=== PATIENT | male | born 1950 | race Hispanic/Latino ===

== ENCOUNTER 2017-07-02 10:07 | Observation (INO) | payer OTHER, MEDICARE ==
[2017-07-02] VITALS (9 sets, daily range): BP systolic 117–173; BP diastolic 70–116
[~2017-07-02] VITALS: Ht 180.3 cm; Wt 58.5 kg
[2017-07-02 11:26] LABS: HEMATOCRIT 43.6 % (42-54); MEAN CORPUSCULAR HEMOGLOBIN 29.6 pg (27.0-33.0); MEAN CORPUSCULAR HGB CONC 33.6 g/dL (32.0-36.0); MEAN CORPUSCULAR VOLUME 88.1 fL (79-99); NUCLEATED RED BLOOD CELLS 0.1 % (0.0-0.19); PLATELET COUNT (AUTO) 426 K/uL (130-400); RED BLOOD CELL COUNT(AUTO) 4.95 MIL/uL (4.50-6.20); WHITE BLOOD COUNT (AUTO) 10.5 K/uL (4.8-10.8)
[2017-07-02] MEDS ORDERED: SODIUM CHLORIDE 0.9% 10 ML VIAL IVP PRN (11:45)
[2017-07-02] MEDS ORDERED: ZOLPIDEM TARTRATE 5 MG TAB PO PRN (11:45)
[2017-07-02] MEDS ORDERED: ONDANSETRON HCL MDV 20ML 2 MG/ML VIAL IVP PRN (11:45)
[2017-07-02 11:47] LABS: ALBUMIN 3.9 g/dL (3.5-5.0); BILIRUBIN,DIRECT 0.1 mg/dL (0.0-0.3); BILIRUBIN,TOTAL 0.6 mg/dL (0.2-1.0); POTASSIUM 5.7 mmol/L (3.5-5.1); THYROID STIMULATING HORMONE 1.15 uIU/mL (0.36-3.74); TOTAL PROTEIN, SERUM 8.7 g/dL (6.0-8.3)
[2017-07-02] MEDS ORDERED: TRAM50TA4 PO (12:16)
[2017-07-02] MEDS ORDERED: FLUO-126 PO (12:16)
[2017-07-02] MEDS: GABAPENTIN 100 MG CAPSULE PO SCH ×2 (13:05→21:22)
[2017-07-02] MEDS: ACETAMINOPHEN-CODEINE 300/30MG TAB PO SCH ×2 (13:06→19:54)
[2017-07-02] MEDS ORDERED: ACETAMINOPHEN-CODEINE 300/30MG TAB PO SCH (14:00)
[2017-07-02] MEDS ORDERED: TRAMADOL HCL 50 MG TABLET PO SCH (14:00)
[2017-07-02] MEDS ORDERED: PNEUMOCOCCAL VACCINE POLYVALENT 0.5 ML/VIAL [PPV] IM SCH (16:00)
[2017-07-02] MEDS: TRAMADOL HCL 50 MG TABLET PO SCH (18:51)
[2017-07-02] MEDS: FAMOTIDINE 20MG TAB 20 MG TAB PO SCH (19:51)
[2017-07-03] MEDS: TRAMADOL HCL 50 MG TABLET PO SCH (02:23)
[2017-07-03 03:13] VITALS: BP 134/77
[2017-07-03] MEDS: GABAPENTIN 100 MG CAPSULE PO SCH (06:21)
[2017-07-03 07:44] VITALS: BP 146/82
[2017-07-03] MEDS ORDERED: ENOXAPARIN SODIUM 40 MG/0.4 ML SYRINGE SQ SCH (09:00)
[2017-07-03] MEDS: ACETAMINOPHEN-CODEINE 300/30MG TAB PO SCH (09:01)
[2017-07-03] MEDS: FAMOTIDINE 20MG TAB 20 MG TAB PO SCH (09:01)
[2017-07-03 11:49] VITALS: BP 128/72
[2017-07-03] MEDS ORDERED: FLUOXETINE HCL 20 MG CAPSULE PO SCH (12:00)
[2017-07-03 16:00] VITALS: BP 141/84
== END 2017-07-03 17:10 | disposition home or self-care (01) ==
LOC: EDH 10:07 → EDHIP 10:08 → 3BH 10:48
PROVIDERS: ADMIT Internal Medicine; ATTEND Internal Medicine
DX: M71.21 Synovial cyst of popliteal space [Baker], right knee (principal); M54.5 Low back pain; E78.5 Hyperlipidemia, unspecified; F41.0 Panic disorder [episodic paroxysmal anxiety]; F41.1 Generalized anxiety disorder; Z23 Encounter for immunization; Z87.828 Personal history of other (healed) physical injury and trauma
CPT/HCPCS: 36415; 72100; 72148; 73721; 80048; 80076; 84443; 85027; 86592; 90471; 90732; 96372; 99285; G0378 ×31; J1650

== ENCOUNTER 2018-12-18 08:34 | Emergency (ER) | payer OTHER, MEDICARE ==
[~2018-12-18 08:34] MED LIST: FLUO-126 PO; TRAM50TA4 PO
[2018-12-18 08:57] LABS: BASOPHILS % (AUTO) 0.6 % (0.0-5.0); EOSINOPHILS % (AUTO) 1.5 % (0.0-8.0); HEMATOCRIT 39.9 % (42-54); LYMPHOCYTES % (AUTO) 25.4 % (21.0-51.0); MEAN CORPUSCULAR HGB CONC 33.5 g/dL (32.0-36.0); MEAN CORPUSCULAR VOLUME 89.6 fL (79-99); MONOCYTES % (AUTO) 6.5 % (3.0-13.0); NUCLEATED RED BLOOD CELLS 0.1 % (0.0-0.19); PLATELET COUNT (AUTO) 333 K/uL (130-400); RED BLOOD CELL COUNT(AUTO) 4.46 MIL/uL (4.50-6.20); RED CELL DISTRIBUTION WIDTH 13.9 % (11.0-15.5); WHITE BLOOD COUNT (AUTO) 12.2 K/uL (4.8-10.8)
[2018-12-18 09:08] LABS: CREATININE 0.8 mg/dL (0.5-1.5); POTASSIUM 4.4 mmol/L (3.5-5.1)
[2018-12-18 09:12] LABS: ALBUMIN 3.9 g/dL (3.5-5.0); BILIRUBIN,TOTAL 1.3 mg/dL (0.2-1.0); TOTAL PROTEIN, SERUM 7.7 g/dL (6.0-8.3)
[2018-12-18 12:11] LABS: BILIRUBIN,URINE NEGATIVE (NEGATIVE); COLOR,URINE YELLOW (YELLOW); GLUCOSE, URINE (UA) NEGATIVE (NEGATIVE); KETONES,URINE NEGATIVE (NEGATIVE); LEUKOCYTE ESTERASE ,URINE NEGATIVE (NEGATIVE); NITRATE,URINE NEGATIVE (NEGATIVE); OCCULT BLOOD,URINE NEGATIVE (NEGATIVE); PROTEIN,URINE NEGATIVE (NEGATIVE); UROBILINOGEN,URINE 0.2 mg/dL (0.2-1.0)
[2018-12-18 12:21] LABS: APPEARANCE,URINE SLIGHTLY CLOUDY (CLEAR)
[2018-12-18 13:04] LABS: AMORPHOUS SEDIMENT,UR Moderate /LPF (None Seen); BACTERIA,URINE Few /HPF (None Seen); RBC,URINE 0-1 /HPF (0-1); WBC,URINE 0-1 /HPF (0-1)
[2018-12-18 13:05] LABS: SQUAMOUS EPITHELIAL CELL,UR 0-2 /HPF (0-2)
[2018-12-18 13:20] LABS: AMPHET/METH SCREEN,URINE NEGATIVE (NEGATIVE); BARBITURATE SCREEN, URINE NEGATIVE (NEGATIVE); BENZODIAZEPINES SCREEN,URINE NEGATIVE (NEGATIVE); CANNABINOID SCREEN,URINE POSITIVE (NEGATIVE); COCAINE SCREEN,URINE NEGATIVE (NEGATIVE); OPIATE SCREEN,URINE NEGATIVE (NEGATIVE); PHENCYCLIDINE SCREEN,URINE NEGATIVE (NEGATIVE)
== END 2018-12-18 14:52 | disposition home or self-care (01) ==
LOC: EDH 08:34
DX: F51.05 Insomnia due to other mental disorder (principal); F32.9 Major depressive disorder, single episode, unspecified; I10 Essential (primary) hypertension; E78.00 Pure hypercholesterolemia, unspecified; Z72.0 Tobacco use
CPT/HCPCS: 36415; 71046; 80053; 80305; 81001; 82550; 83880; 84484; 85025; 87804; 93005

== ENCOUNTER → 2020-08-04 | Outpatient (CLI) | payer OTHER ==
[~2020-08-04] MED LIST changes: -FLUO-126 PO; +FLUO20CA35 PO
== END | disposition home or self-care (01) ==
LOC: RAH 15:18
PROVIDERS: ATTEND Internal Medicine
DX: K59.00 Constipation, unspecified (principal)
CPT/HCPCS: 74018

== ENCOUNTER 2020-11-07 08:04 | Day surgery (SDC) | payer OTHER ==
[~2020-11-07] VITALS: Ht 180.3 cm; Wt 54.4 kg
[~2020-11-07 08:04] MED LIST changes: +0.9%NACL 1000ML 1,000 ML IV ONE; +ATOR20TA65 PO; +DULO60CA64 PO; +FLUT15.845 NS; +GABA300C PO; +LEMB5TAB PO; +METO-408 PO; +RILU50TA PO; +TIOT4MIS5 IH
[2020-11-07 08:50] VITALS: BP 160/102
[2020-11-07] MEDS ORDERED: PROPOFOL 10 MG/ML 20ML VIAL IV ONE (09:08)
[2020-11-07] MEDS ORDERED: BISA5TAB12 PEG (09:18)
[2020-11-07] MEDS ORDERED: FLUT15.845 NS (09:18)
[2020-11-07] MEDS ORDERED: GABA300C PO (09:18)
[2020-11-07] MEDS ORDERED: ATOR20TA65 PEG (09:18)
[2020-11-07] MEDS ORDERED: FLUO20CA30 PEG (09:18)
[2020-11-07] MEDS ORDERED: ACET-2247 PEG (09:18)
[2020-11-07] MEDS ORDERED: DULO60CA64 PEG (09:18)
[2020-11-07] MEDS ORDERED: FAMO-136 PEG (09:18)
[2020-11-07] MEDS ORDERED: LEMB5TAB PEG (09:18)
[2020-11-07] MEDS ORDERED: GOLY4L PEG (09:18)
[2020-11-07] MEDS ORDERED: TRAM50TA4 PEG (09:18)
[2020-11-07] MEDS ORDERED: GABA300C PEG (09:18)
[2020-11-07] MEDS ORDERED: RILU50TA13 PEG (09:25)
[2020-11-07] MEDS ORDERED: MULT9LIQ6 PO (09:25)
[2020-11-07] MEDS ORDERED: METO25TA6 PEG (09:25)
[2020-11-07] MEDS ORDERED: PANT40SU PEG (09:25)
[2020-11-07] MEDS ORDERED: SIME80TA12 PEG (09:25)
[2020-11-07] MEDS ORDERED: TIOT4MIS2 IH (09:25)
[2020-11-07] MEDS ORDERED: MELA5CAP PEG (09:25)
[2020-11-07] MEDS ORDERED: PRED15SO12 PO (09:25)
[2020-11-07] MEDS ORDERED: ONDA-104 PEG (09:25)
[2020-11-07] MEDS ORDERED: POLY17PO4 PO (09:25)
[2020-11-07] MEDS ORDERED: PRAM56OI TP (09:27)
[2020-11-07 09:30] VITALS: BP 146/88
[2020-11-07 09:35] VITALS: BP 155/98
[2020-11-07 09:40] VITALS: BP 160/95
[2020-11-07 09:45] VITALS: BP 162/94
[2020-11-07 09:50] VITALS: BP 160/88
== END 2020-11-07 10:24 | disposition home or self-care (01) ==
LOC: ENDO 08:04 → DAH 08:04 → ENDO 10:24
PROVIDERS: ATTEND Internal Medicine Gastroenterology
DX: K92.1 Melena (principal); Z20.822 Contact with and (suspected) exposure to COVID-19; K59.04 Chronic idiopathic constipation; K57.30 Diverticulosis of large intestine without perforation or abscess without bleeding; K64.0 First degree hemorrhoids; K21.9 Gastro-esophageal reflux disease without esophagitis; F41.9 Anxiety disorder, unspecified; I10 Essential (primary) hypertension; F32.9 Major depressive disorder, single episode, unspecified; E78.5 Hyperlipidemia, unspecified; M19.90 Unspecified osteoarthritis, unspecified site; Z72.89 Other problems related to lifestyle; Z86.010 Personal history of colon polyps; Z79.899 Other long term (current) drug therapy; Z98.890 Other specified postprocedural states; Z86.73 Personal history of transient ischemic attack (TIA), and cerebral infarction without residual deficits
CPT/HCPCS: 45378; 93005; A4215 ×2; A4221; A4222; A4223; A4606; A4620; A4657; A4663; J2704; J7030; 43261; 43264; 43273; 43276; C1769; C2625

== ENCOUNTER 2020-12-01 07:47 | Inpatient (IN) | payer OTHER ==
[~2020-12-01] VITALS: Ht 188 cm; Wt 61.2 kg
[2020-12-01] VITALS (7 sets, daily range): BP systolic 114–182; BP diastolic 75–107
[~2020-12-01 07:47] MED LIST changes: -0.9%NACL 1000ML 1,000 ML IV ONE; +ACET-2247 PEG; +ATOR20TA65 PEG; -ATOR20TA65 PO; +BISA5TAB12 PEG; +DULO60CA64 PEG; -DULO60CA64 PO; +FAMO-136 PEG; +FLUO20CA30 PEG; -FLUO20CA35 PO; +GABA300C PEG; -GABA300C PO; +GOLY4L PEG; +LEMB5TAB PEG; -LEMB5TAB PO; +MELA5CAP PEG; -METO-408 PO; +METO25TA6 PEG; +MULT9LIQ6 PO; +ONDA-104 PEG; +PANT40SU PEG; +POLY17PO4 PO; +PRAM56OI TP; +PRED15SO12 PO; -RILU50TA PO; +RILU50TA13 PEG; +SIME80TA12 PEG; +TIOT4MIS2 IH; -TIOT4MIS5 IH; +TRAM50TA4 PEG; -TRAM50TA4 PO
[2020-12-01 08:38] LABS: BASOPHILS % (AUTO) 0.3 % (0.0-5.0); EOSINOPHILS % (AUTO) 0.2 % (0.0-8.0); HEMATOCRIT 41.1 % (42-54); LYMPHOCYTES % (AUTO) 11.2 % (21.0-51.0); MEAN CORPUSCULAR HEMOGLOBIN 29.4 pg (27.0-33.0); MEAN CORPUSCULAR HGB CONC 30.7 g/dL (32.0-36.0); MEAN CORPUSCULAR VOLUME 95.8 fL (79-99); MONOCYTES % (AUTO) 9.2 % (3.0-13.0); NEUTROPHILS % (AUTO) 76.5 % (40.0-77.0); PLATELET COUNT (AUTO) 274 K/uL (130-400); RED BLOOD CELL COUNT(AUTO) 4.29 MIL/uL (4.50-6.20); RED CELL DISTRIBUTION WIDTH 15.3 % (11.0-15.5); WHITE BLOOD COUNT (AUTO) 13.6 K/uL (4.8-10.8)
[2020-12-01 08:56] LABS: ALBUMIN 3.1 g/dL (3.5-5.0); BILIRUBIN,TOTAL 0.8 mg/dL (0.2-1.0); CREATININE 0.6 mg/dL (0.5-1.5); POTASSIUM 4.3 mmol/L (3.5-5.1); TOTAL PROTEIN, SERUM 6.2 g/dL (6.0-8.3)
[2020-12-01 09:10] LABS: B-TYPE NATRIURETIC PEPTIDE 87 pg/mL (0-100)
[2020-12-01] MEDS ORDERED: ACETAMINOPHEN 325 MG TAB ONE (09:38)
[2020-12-01 10:31] LABS: ABG BASE EXCESS 10.6 mmol/L (-2.0-3.0); ABG HCO3 38.9 mmol/L (21.0-28.0); ABG PCO2 68 mmHg (35-48)
[2020-12-01 12:19] LABS: APPEARANCE,URINE Turbid (CLEAR); BILIRUBIN,URINE Negative (NEGATIVE); COLOR,URINE Yellow (YELLOW); GLUCOSE, URINE (UA) Negative (NEGATIVE); KETONES,URINE Negative (NEGATIVE); LEUKOCYTE ESTERASE ,URINE Negative (NEGATIVE); NITRATE,URINE Negative (NEGATIVE); OCCULT BLOOD,URINE Negative (NEGATIVE); PH,URINE 8.5 (5.0-8.0); PROTEIN,URINE Trace mg/dL (NEGATIVE)
[2020-12-01 12:31] LABS: AMORPHOUS SEDIMENT,UR Moderate /LPF (None Seen); BACTERIA,URINE None Seen /HPF (None Seen); RBC,URINE 0-1 /HPF (0-1); SQUAMOUS EPITHELIAL CELL,UR 0-2 /HPF (0-2); WBC,URINE 0-1 /HPF (0-1)
[2020-12-01] MEDS ORDERED: ACETAMINOPHEN 325 MG TAB PO PRN (14:30)
[2020-12-01] MEDS ORDERED: ONDANSETRON 4MG INJ IV PRN (14:30)
[2020-12-01] MEDS ORDERED: 0.9%NACL 1000ML 1,000 ML IV SCH (14:30)
[2020-12-01] MEDS ORDERED: ZOSYN 3.375GM+NS 50ML 3.38 GM in 0.9%NACL 50ML 50 ML IV SCH (14:30)
[2020-12-01] MEDS: 0.9%NACL 50ML IV SCH ×2 (15:07→23:38)
[2020-12-01] MEDS: ZOSYN 3.375GM +NS 50ML IV SCH ×2 (15:07→23:38)
[2020-12-01] MEDS ORDERED: Melatonin 5 MG PEG PRN (15:30)
[2020-12-01] MEDS ORDERED: LACTATED RINGERS 1000ML 1,000 ML IV ONE (16:56)
[2020-12-01] MEDS ORDERED: EPINEPHRINE 1MG SYG 10ML IVP ONE (17:10)
[2020-12-01] MEDS ORDERED: ATROPINE 1MG SYG IVP ONE (17:10)
[2020-12-01] MEDS ORDERED: AMIODARONE 150MG VIAL IV ONE (17:10)
[2020-12-01] MEDS: LACTATED RINGERS 1000ML 1,000 ML IV SCH (17:22)
[2020-12-01] MEDS: DEXTROSE 5 % AND 0.9 % NACL 1,000 ML IV SCH (20:01)
[2020-12-01] MEDS ORDERED: FAMOTIDINE 20MG VIAL IV SCH (21:00)
[2020-12-01] MEDS ORDERED: FAMOTIDINE 20MG TAB PEG SCH (21:00)
[2020-12-01] MEDS: ATORVASTATIN 20 MG TABLET PEG SCH (21:15)
[2020-12-02] VITALS (17 sets, daily range): BP systolic 110–155; BP diastolic 59–96
[2020-12-02] MEDS: LACTATED RINGERS 1000ML 1,000 ML IV SCH (06:20)
[2020-12-02 06:46] LABS: BASOPHILS % (AUTO) 0.3 % (0.0-5.0); EOSINOPHILS % (AUTO) 1.2 % (0.0-8.0); HEMATOCRIT 43.6 % (42-54); LYMPHOCYTES % (AUTO) 20.5 % (21.0-51.0); MEAN CORPUSCULAR HEMOGLOBIN 29.8 pg (27.0-33.0); MEAN CORPUSCULAR HGB CONC 30.5 g/dL (32.0-36.0); MEAN CORPUSCULAR VOLUME 97.5 fL (79-99); MONOCYTES % (AUTO) 7.4 % (3.0-13.0); NEUTROPHILS % (AUTO) 68.4 % (40.0-77.0); PLATELET COUNT (AUTO) 241 K/uL (130-400); RED BLOOD CELL COUNT(AUTO) 4.47 MIL/uL (4.50-6.20); RED CELL DISTRIBUTION WIDTH 15.5 % (11.0-15.5); WHITE BLOOD COUNT (AUTO) 11.8 K/uL (4.8-10.8)
[2020-12-02 07:01] LABS: ALBUMIN 2.8 g/dL (3.5-5.0); BILIRUBIN,TOTAL 1.4 mg/dL (0.2-1.0); CREATININE 0.6 mg/dL (0.5-1.5); POTASSIUM 4.5 mmol/L (3.5-5.1); TOTAL PROTEIN, SERUM 6.1 g/dL (6.0-8.3)
[2020-12-02] MEDS: 0.9%NACL 50ML IV SCH ×2 (08:36→15:30)
[2020-12-02] MEDS: ZOSYN 3.375GM +NS 50ML IV SCH ×2 (08:36→15:30)
[2020-12-02] MEDS ORDERED: ENOXAPARIN SODIUM 30 MG/0.3 ML SQ SCH (09:00)
[2020-12-02] MEDS: FLUOXETINE HCL 20 MG CAPSULE PEG SCH (09:29)
[2020-12-02] MEDS: DULOXETINE HCL 30 MG CAP PEG SCH (09:29)
[2020-12-02] MEDS: PANTOPRAZOLE 40 MG/VIAL IVP SCH (09:29)
[2020-12-02] MEDS: METOPROLOL TARTRATE 25 MG TAB PEG SCH (09:29)
[2020-12-02] MEDS: DEXTROSE 5 % AND 0.9 % NACL 1,000 ML IV SCH (14:30)
[2020-12-02] MEDS ORDERED: FAMOTIDINE 20MG VIAL IV ONE (20:36)
[2020-12-02] MEDS ORDERED: ZOLPIDEM TARTRATE 5 MG TAB ONE (20:52)
[2020-12-02] MEDS: SOLU-MEDROL 40MG VIAL IVP SCH (20:53)
[2020-12-02] MEDS: ATORVASTATIN 20 MG TABLET PEG SCH (20:53)
[2020-12-02] MEDS: LABETALOL 20MG SYG IV PRN (20:53)
[2020-12-02] MEDS ORDERED: ZOLPIDEM TARTRATE 5 MG TAB PO PRN (21:00)
[2020-12-03 00:28] VITALS: BP 120/66
[2020-12-03] MEDS: ZOSYN 3.375GM +NS 50ML IV SCH ×3 (00:45→17:22)
[2020-12-03] MEDS: DEXTROSE 5 % AND 0.9 % NACL 1,000 ML IV SCH ×2 (00:45→23:52)
[2020-12-03] MEDS: 0.9%NACL 50ML IV SCH ×3 (00:45→17:22)
[2020-12-03] MEDS ORDERED: TRAZ-185 PEG (01:50)
[2020-12-03] MEDS ORDERED: POLY17PO4 PEG (01:50)
[2020-12-03] MEDS ORDERED: MIRT-118 PEG (01:50)
[2020-12-03] MEDS ORDERED: METO5 PEG (01:50)
[2020-12-03] MEDS ORDERED: RILU50TA PO (02:06)
[2020-12-03 04:00] VITALS: BP 131/79
[2020-12-03 05:11] LABS: BASOPHILS % (AUTO) 0.1 % (0.0-5.0); HEMATOCRIT 36.6 % (42-54); LYMPHOCYTES % (AUTO) 10.3 % (21.0-51.0); MEAN CORPUSCULAR HEMOGLOBIN 29.7 pg (27.0-33.0); MEAN CORPUSCULAR HGB CONC 31.1 g/dL (32.0-36.0); MEAN CORPUSCULAR VOLUME 95.3 fL (79-99); MONOCYTES % (AUTO) 2.1 % (3.0-13.0); NEUTROPHILS % (AUTO) 85.7 % (40.0-77.0); PLATELET COUNT (AUTO) 238 K/uL (130-400); RED BLOOD CELL COUNT(AUTO) 3.84 MIL/uL (4.50-6.20); RED CELL DISTRIBUTION WIDTH 14.7 % (11.0-15.5); WHITE BLOOD COUNT (AUTO) 7.3 K/uL (4.8-10.8)
[2020-12-03 05:31] LABS: ALBUMIN 2.4 g/dL (3.5-5.0); BILIRUBIN,TOTAL 0.9 mg/dL (0.2-1.0); CREATININE 0.5 mg/dL (0.5-1.5); TOTAL PROTEIN, SERUM 5.7 g/dL (6.0-8.3)
[2020-12-03 08:07] VITALS: BP 151/92
[2020-12-03] MEDS ORDERED: IOHEXOL 350 MG/ML 100ML INFUS..BTL IV ONE (09:31)
[2020-12-03] MEDS: PANTOPRAZOLE 40 MG/VIAL IVP SCH (11:16)
[2020-12-03] MEDS: DULOXETINE HCL 30 MG CAP PEG SCH (11:17)
[2020-12-03] MEDS: METOPROLOL TARTRATE 25 MG TAB PEG SCH (11:17)
[2020-12-03] MEDS: SOLU-MEDROL 40MG VIAL IVP SCH (11:17)
[2020-12-03] MEDS: FLUOXETINE HCL 20 MG CAPSULE PEG SCH (11:17)
[2020-12-03] MEDS: ENOXAPARIN SODIUM 40 MG/0.4 ML SYRINGE SQ SCH (11:18)
[2020-12-03 12:00] VITALS: BP 153/99
[2020-12-03 16:00] VITALS: BP 167/101
[2020-12-03 20:00] VITALS: BP 171/99
[2020-12-03] MEDS: ATORVASTATIN 20 MG TABLET PEG SCH (22:10)
[2020-12-04 00:04] VITALS: BP 178/100
[2020-12-04] MEDS: ZOSYN 3.375GM +NS 50ML IV SCH ×4 (00:56→22:42)
[2020-12-04] MEDS: 0.9%NACL 50ML IV SCH ×4 (00:56→22:55)
[2020-12-04] MEDS: LABETALOL 20MG SYG IV PRN ×2 (01:24→16:04)
[2020-12-04] MEDS ORDERED: HYDRALAZINE 20MG/ML VIAL ONE (03:19)
[2020-12-04] MEDS ORDERED: HYDRALAZINE 20MG/ML VIAL IV PRN (03:30)
[2020-12-04 03:39] LABS: BASOPHILS % (AUTO) 0.1 % (0.0-5.0); EOSINOPHILS % (AUTO) 0.4 % (0.0-8.0); HEMATOCRIT 41.3 % (42-54); MEAN CORPUSCULAR HEMOGLOBIN 29.5 pg (27.0-33.0); MEAN CORPUSCULAR HGB CONC 31.2 g/dL (32.0-36.0); MEAN CORPUSCULAR VOLUME 94.5 fL (79-99); MONOCYTES % (AUTO) 8.7 % (3.0-13.0); NEUTROPHILS % (AUTO) 73.9 % (40.0-77.0); PLATELET COUNT (AUTO) 214 K/uL (130-400); RED BLOOD CELL COUNT(AUTO) 4.37 MIL/uL (4.50-6.20); RED CELL DISTRIBUTION WIDTH 14.6 % (11.0-15.5); WHITE BLOOD COUNT (AUTO) 10.6 K/uL (4.8-10.8)
[2020-12-04 04:04] VITALS: BP 143/81
[2020-12-04 06:20] LABS: ALBUMIN 2.8 g/dL (3.5-5.0); CREATININE 0.6 mg/dL (0.5-1.5); TOTAL PROTEIN, SERUM 6.6 g/dL (6.0-8.3)
[2020-12-04] MEDS: TIOTROPIUM BROMIDE 4 GM IH SCH (09:00)
[2020-12-04] MEDS: RILUZOLE 50 MG PO SCH ×2 (09:00→15:35)
[2020-12-04] MEDS: LANSOPRAZOLE 15 MG SOLU TAB PEG SCH (09:00)
[2020-12-04] MEDS: FLUOXETINE HCL 20 MG CAPSULE PEG SCH (10:28)
[2020-12-04] MEDS: METOPROLOL TARTRATE 25 MG TAB PEG SCH (10:28)
[2020-12-04] MEDS: DULOXETINE HCL 30 MG CAP PEG SCH (10:28)
[2020-12-04] MEDS: PREDNISOLONE 15 MG/5 ML SOLN PO SCH (10:29)
[2020-12-04] MEDS: PANTOPRAZOLE 40 MG/VIAL IVP SCH (10:30)
[2020-12-04] MEDS: ENOXAPARIN SODIUM 40 MG/0.4 ML SYRINGE SQ SCH (10:31)
[2020-12-04] MEDS ORDERED: ARTIFICAL TEARS SOL 15 ML OU PRN (11:30)
[2020-12-04 12:00] VITALS: BP 167/111
[2020-12-04] MEDS ORDERED: HEMORRHOID PR SCH (13:00)
[2020-12-04] MEDS: DEXTROSE 5 % AND 0.9 % NACL 1,000 ML IV SCH ×2 (15:07→22:43)
[2020-12-04 16:00] VITALS: BP 172/100
[2020-12-04 21:00] VITALS: BP 153/99
[2020-12-04] MEDS: ATORVASTATIN 20 MG TABLET PEG SCH (22:40)
[2020-12-04] MEDS: RISPERIDONE 1 MG TABLET PO SCH (22:40)
[2020-12-05] VITALS (8 sets, daily range): BP systolic 105–146; BP diastolic 57–92
[2020-12-05 06:32] LABS: BASOPHILS % (AUTO) 0.2 % (0.0-5.0); EOSINOPHILS % (AUTO) 1.6 % (0.0-8.0); HEMATOCRIT 38.5 % (42-54); LYMPHOCYTES % (AUTO) 19.6 % (21.0-51.0); MEAN CORPUSCULAR HEMOGLOBIN 29.8 pg (27.0-33.0); MEAN CORPUSCULAR HGB CONC 30.9 g/dL (32.0-36.0); MEAN CORPUSCULAR VOLUME 96.3 fL (79-99); MONOCYTES % (AUTO) 10.6 % (3.0-13.0); NEUTROPHILS % (AUTO) 67.1 % (40.0-77.0); PLATELET COUNT (AUTO) 221 K/uL (130-400); RED CELL DISTRIBUTION WIDTH 14.8 % (11.0-15.5); WHITE BLOOD COUNT (AUTO) 8.2 K/uL (4.8-10.8)
[2020-12-05] MEDS: 0.9%NACL 50ML IV SCH ×3 (06:42→22:43)
[2020-12-05] MEDS: ZOSYN 3.375GM +NS 50ML IV SCH ×3 (06:42→22:43)
[2020-12-05 06:51] LABS: ALBUMIN 2.6 g/dL (3.5-5.0); BILIRUBIN,TOTAL 0.9 mg/dL (0.2-1.0); CREATININE 0.5 mg/dL (0.5-1.5); POTASSIUM 3.5 mmol/L (3.5-5.1)
[2020-12-05] MEDS: DEXTROSE 5%-WATER 1,000 ML IV SCH ×2 (09:00→22:20)
[2020-12-05] MEDS: LANSOPRAZOLE 15 MG SOLU TAB PEG SCH (09:00)
[2020-12-05] MEDS: TIOTROPIUM BROMIDE 4 GM IH SCH (09:00)
[2020-12-05] MEDS: PANTOPRAZOLE 40 MG/VIAL IVP SCH (10:31)
[2020-12-05] MEDS: DULOXETINE HCL 30 MG CAP PEG SCH (10:32)
[2020-12-05] MEDS: FLUOXETINE HCL 20 MG CAPSULE PEG SCH (10:32)
[2020-12-05] MEDS: RISPERIDONE 1 MG TABLET PO SCH ×2 (10:32→21:20)
[2020-12-05] MEDS: METOPROLOL TARTRATE 25 MG TAB PEG SCH (10:32)
[2020-12-05] MEDS: PREDNISOLONE 15 MG/5 ML SOLN PO SCH (10:33)
[2020-12-05] MEDS: ENOXAPARIN SODIUM 40 MG/0.4 ML SYRINGE SQ SCH (10:45)
[2020-12-05] MEDS: RILUZOLE 50 MG PO SCH (21:00)
[2020-12-05] MEDS: ATORVASTATIN 20 MG TABLET PEG SCH (21:19)
[2020-12-06 03:41] VITALS: BP 114/82
[2020-12-06] MEDS: ZOSYN 3.375GM +NS 50ML IV SCH ×2 (06:11→16:21)
[2020-12-06] MEDS: 0.9%NACL 50ML IV SCH ×2 (06:11→16:22)
[2020-12-06 06:44] LABS: CREATININE 0.5 mg/dL (0.5-1.5); POTASSIUM 3.9 mmol/L (3.5-5.1)
[2020-12-06 08:00] VITALS: BP 143/80
[2020-12-06] MEDS ORDERED: PHARMACY COMMUNICATION MISC SCH (09:00)
[2020-12-06] MEDS ORDERED: BIOTENE 44.3 ML SOLUTION MM PRN (09:00)
[2020-12-06] MEDS: RILUZOLE 50 MG PO SCH ×2 (09:00→21:00)
[2020-12-06] MEDS: TIOTROPIUM BROMIDE 4 GM IH SCH (09:00)
[2020-12-06] MEDS: DULOXETINE HCL 30 MG CAP PEG SCH (10:25)
[2020-12-06] MEDS: RISPERIDONE 1 MG TABLET PO SCH ×2 (10:25→22:32)
[2020-12-06] MEDS: METOPROLOL TARTRATE 25 MG TAB PEG SCH (10:26)
[2020-12-06] MEDS: PANTOPRAZOLE 40 MG/VIAL IVP SCH (10:27)
[2020-12-06] MEDS: FLUOXETINE HCL 20 MG CAPSULE PEG SCH (10:28)
[2020-12-06] MEDS: LANSOPRAZOLE 15 MG SOLU TAB PEG SCH (10:41)
[2020-12-06] MEDS: ENOXAPARIN SODIUM 40 MG/0.4 ML SYRINGE SQ SCH (10:42)
[2020-12-06] MEDS: PREDNISOLONE 15 MG/5 ML SOLN PO SCH (10:52)
[2020-12-06 12:00] VITALS: BP 138/86
[2020-12-06 16:00] VITALS: BP 159/93
[2020-12-06 20:00] VITALS: BP 156/93
[2020-12-06] MEDS: ATORVASTATIN 20 MG TABLET PEG SCH (22:32)
[2020-12-06] MEDS: DEXTROSE 5%-WATER 1,000 ML IV SCH (22:33)
[2020-12-07] VITALS (23 sets, daily range): BP systolic 54–170; BP diastolic 29–102
[2020-12-07] MEDS: DEXTROSE 5%-WATER 1,000 ML IV SCH ×2 (00:40→15:39)
[2020-12-07] MEDS: ZOSYN 3.375GM +NS 50ML IV SCH ×3 (00:40→15:39)
[2020-12-07] MEDS: 0.9%NACL 50ML IV SCH ×3 (00:40→15:39)
[2020-12-07] MEDS: RILUZOLE 50 MG PO SCH ×2 (09:00→21:00)
[2020-12-07] MEDS: TIOTROPIUM BROMIDE 4 GM IH SCH (09:00)
[2020-12-07] MEDS: PANTOPRAZOLE 40 MG/VIAL IVP SCH (10:07)
[2020-12-07] MEDS: FLUOXETINE HCL 20 MG CAPSULE PEG SCH (10:09)
[2020-12-07] MEDS: PREDNISOLONE 15 MG/5 ML SOLN PO SCH (10:09)
[2020-12-07] MEDS: LANSOPRAZOLE 15 MG SOLU TAB PEG SCH (10:09)
[2020-12-07] MEDS: METOPROLOL TARTRATE 25 MG TAB PEG SCH (10:09)
[2020-12-07] MEDS: DULOXETINE HCL 30 MG CAP PEG SCH (10:10)
[2020-12-07] MEDS: RISPERIDONE 1 MG TABLET PO SCH ×2 (10:10→21:00)
[2020-12-07] MEDS: ENOXAPARIN SODIUM 40 MG/0.4 ML SYRINGE SQ SCH (10:11)
[2020-12-07] MEDS ORDERED: IPRATROPIUM/ALBUTEROL SULFATE 3 ML SOLUTION IH PRN (11:30)
[2020-12-07] MEDS ORDERED: PROPOFOL 1000 MG/100 ML 100 ML IV SCH (16:30)
[2020-12-07] MEDS ORDERED: AMIODARONE 900MG VIAL 360 MG in DEXTROSE 5%-WATER 200 ML IV SCH (16:30)
[2020-12-07] MEDS ORDERED: FENTANYL 2500MCG+NS 250ML 250 ML IV SCH (16:30)
[2020-12-07 16:32] LABS: ABG BASE EXCESS 1.8 mmol/L (-2.0-3.0); ABG HCO3 27.5 mmol/L (21.0-28.0); ABG OXYGEN SATURATION 99.6 % (95.0-99.0); ABG PCO2 48 mmHg (35-48)
[2020-12-07] MEDS: NOREPINEPHRINE 4MG/NS 250ML 250 ML IV SCH ×2 (17:06→21:31)
[2020-12-07 17:13] LABS: BASOPHILS % (AUTO) 0.2 % (0.0-5.0); HEMATOCRIT 36.7 % (42-54); LYMPHOCYTES % (AUTO) 7.7 % (21.0-51.0); MEAN CORPUSCULAR HEMOGLOBIN 29.5 pg (27.0-33.0); MEAN CORPUSCULAR HGB CONC 30.5 g/dL (32.0-36.0); MEAN CORPUSCULAR VOLUME 96.6 fL (79-99); MONOCYTES % (AUTO) 3.7 % (3.0-13.0); NEUTROPHILS % (AUTO) 86.6 % (40.0-77.0); PLATELET COUNT (AUTO) 222 K/uL (130-400); RED CELL DISTRIBUTION WIDTH 14.6 % (11.0-15.5); WHITE BLOOD COUNT (AUTO) 8.2 K/uL (4.8-10.8)
[2020-12-07 17:36] LABS: CREATININE 0.8 mg/dL (0.5-1.5); POTASSIUM 4.4 mmol/L (3.5-5.1)
[2020-12-07 17:54] LABS: ALBUMIN 2.5 g/dL (3.5-5.0); BILIRUBIN,TOTAL 0.5 mg/dL (0.2-1.0); MAGNESIUM 2.2 mg/dL (1.80-2.40); TOTAL PROTEIN, SERUM 6.3 g/dL (6.0-8.3)
[2020-12-07 17:55] LABS: CREATINE KINASE, TOTAL 48 U/L (21-232); MYOGLOBIN 152 ng/mL (10-92)
[2020-12-07 18:20] LABS: ABG BASE EXCESS 11.2 mmol/L (-2.0-3.0); ABG HCO3 35.8 mmol/L (21.0-28.0); ABG OXYGEN SATURATION 99.1 % (95.0-99.0); ABG PCO2 47 mmHg (35-48)
[2020-12-07] MEDS ORDERED: VASOPRESSIN 20 UNITS in 0.9%NACL 100ML 100 ML IV SCH (19:30)
[2020-12-07] MEDS ORDERED: ACETAZOLAMIDE SODIUM 500 MG VIAL IV SCH (19:30)
[2020-12-07] MEDS: ATORVASTATIN 20 MG TABLET PEG SCH (21:00)
[2020-12-08] VITALS (65 sets, daily range): BP systolic 76–169; BP diastolic 49–97
[2020-12-08] MEDS: ZOSYN 3.375GM +NS 50ML IV SCH ×4 (01:24→22:51)
[2020-12-08] MEDS: 0.9%NACL 50ML IV SCH ×4 (01:24→22:51)
[2020-12-08] MEDS: DEXMEDETOMIDINE 400MCG/NS100ML IV SCH ×2 (01:26→22:18)
[2020-12-08 02:58] LABS: ABG BASE EXCESS 7.6 mmol/L (-2.0-3.0); ABG OXYGEN SATURATION 98.4 % (95.0-99.0); ABG PCO2 70 mmHg (35-48)
[2020-12-08] MEDS ORDERED: LORAZEPAM 2 MG/ML 1 ML VIAL ONE (03:06)
[2020-12-08] MEDS ORDERED: MIDAZOLAM 100MG-0.9% NS 100ML 100ML BAG IV PRN (03:30)
[2020-12-08] MEDS: DEXTROSE 5%-WATER 1,000 ML IV SCH ×2 (03:40→18:09)
[2020-12-08 04:05] LABS: BASOPHILS % (AUTO) 0.3 % (0.0-5.0); EOSINOPHILS % (AUTO) 0.1 % (0.0-8.0); HEMATOCRIT 36.6 % (42-54); LYMPHOCYTES % (AUTO) 6.3 % (21.0-51.0); MEAN CORPUSCULAR HEMOGLOBIN 29.6 pg (27.0-33.0); MEAN CORPUSCULAR HGB CONC 30.6 g/dL (32.0-36.0); MEAN CORPUSCULAR VOLUME 96.6 fL (79-99); MONOCYTES % (AUTO) 7.9 % (3.0-13.0); NEUTROPHILS % (AUTO) 81.7 % (40.0-77.0); PLATELET COUNT (AUTO) 218 K/uL (130-400); RED BLOOD CELL COUNT(AUTO) 3.79 MIL/uL (4.50-6.20); RED CELL DISTRIBUTION WIDTH 14.7 % (11.0-15.5); WHITE BLOOD COUNT (AUTO) 12.9 K/uL (4.8-10.8)
[2020-12-08 04:36] LABS: ALBUMIN 2.7 g/dL (3.5-5.0); BILIRUBIN,TOTAL 0.8 mg/dL (0.2-1.0); CREATININE 0.6 mg/dL (0.5-1.5); MAGNESIUM 2.3 mg/dL (1.80-2.40); POTASSIUM 4.3 mmol/L (3.5-5.1); TOTAL PROTEIN, SERUM 6.7 g/dL (6.0-8.3)
[2020-12-08] MEDS: METOPROLOL TARTRATE 25 MG TAB PEG SCH (09:00)
[2020-12-08] MEDS: RILUZOLE 50 MG PO SCH ×2 (09:00→21:00)
[2020-12-08] MEDS: ENOXAPARIN SODIUM 40 MG/0.4 ML SYRINGE SQ SCH (09:00)
[2020-12-08] MEDS: FLUOXETINE HCL 20 MG CAPSULE PEG SCH (09:00)
[2020-12-08] MEDS: PREDNISOLONE 15 MG/5 ML SOLN PO SCH (09:00)
[2020-12-08] MEDS: LANSOPRAZOLE 15 MG SOLU TAB PEG SCH (09:00)
[2020-12-08] MEDS: DULOXETINE HCL 30 MG CAP PEG SCH (09:00)
[2020-12-08] MEDS: TIOTROPIUM BROMIDE 4 GM IH SCH (09:00)
[2020-12-08] MEDS: RISPERIDONE 1 MG TABLET PO SCH ×2 (09:00→21:50)
[2020-12-08] MEDS: PANTOPRAZOLE 40 MG/VIAL IVP SCH (09:19)
[2020-12-08 09:27] LABS: ABG BASE EXCESS 8.8 mmol/L (-2.0-3.0); ABG PCO2 54 mmHg (35-48)
[2020-12-08] MEDS ORDERED: COMPOUND IV MISC 1 EACH IVSOLN MISC PRN (14:00)
[2020-12-08] MEDS: LEVETIRACETAM 500 MG in 0.9%NACL 100ML 100 ML IV SCH ×2 (18:08→22:51)
[2020-12-08] MEDS: ATORVASTATIN 20 MG TABLET PEG SCH (21:49)
[2020-12-09] VITALS (71 sets, daily range): BP systolic 52–148; BP diastolic 33–87
[2020-12-09 03:42] LABS: BASOPHILS % (AUTO) 0.1 % (0.0-5.0); EOSINOPHILS % (AUTO) 0.3 % (0.0-8.0); HEMATOCRIT 34.5 % (42-54); LYMPHOCYTES % (AUTO) 10.1 % (21.0-51.0); MEAN CORPUSCULAR HEMOGLOBIN 29.1 pg (27.0-33.0); MEAN CORPUSCULAR HGB CONC 31.9 g/dL (32.0-36.0); MEAN CORPUSCULAR VOLUME 91.3 fL (79-99); MONOCYTES % (AUTO) 6.7 % (3.0-13.0); NEUTROPHILS % (AUTO) 81.4 % (40.0-77.0); PLATELET COUNT (AUTO) 255 K/uL (130-400); RED BLOOD CELL COUNT(AUTO) 3.78 MIL/uL (4.50-6.20); RED CELL DISTRIBUTION WIDTH 14.6 % (11.0-15.5)
[2020-12-09 04:40] LABS: ALBUMIN 2.5 g/dL (3.5-5.0); BILIRUBIN,TOTAL 0.9 mg/dL (0.2-1.0); CREATININE 0.5 mg/dL (0.5-1.5); MAGNESIUM 1.8 mg/dL (1.80-2.40); PHOSPHORUS 2.7 mg/dL (2.5-4.9); TOTAL PROTEIN, SERUM 6.1 g/dL (6.0-8.3)
[2020-12-09 04:43] LABS: POTASSIUM 2.7 mmol/L (3.5-5.1)
[2020-12-09] MEDS: POTASSIUM CHLORIDE 10% ELIXIR 20 MEQ/15 ML UDCUP PO PRN ×3 (05:15→10:10)
[2020-12-09] MEDS: 0.9%NACL 50ML IV SCH ×3 (06:29→21:38)
[2020-12-09] MEDS: DEXTROSE 5%-WATER 1,000 ML IV SCH ×2 (06:29→19:40)
[2020-12-09] MEDS: LEVETIRACETAM 500 MG in 0.9%NACL 100ML 100 ML IV SCH ×3 (06:29→19:46)
[2020-12-09] MEDS: ZOSYN 3.375GM +NS 50ML IV SCH ×3 (06:30→21:38)
[2020-12-09] MEDS ORDERED: POTASSIUM CHLORIDE 20MEQ/100ML 100 ML IV PRN (08:30)
[2020-12-09] MEDS ORDERED: LIDOCAINE HCL-MPF 1% 2ML VIAL IV PRN (08:30)
[2020-12-09] MEDS ORDERED: MAGNESIUM 2GM PREMIX 50ML 50 ML IV PRN (08:30)
[2020-12-09] MEDS ORDERED: LORAZEPAM 2 MG/ML 1 ML VIAL ONE ×2 (08:42→08:43)
[2020-12-09] MEDS: FLUOXETINE HCL 20 MG CAPSULE PEG SCH (09:00)
[2020-12-09] MEDS: DULOXETINE HCL 30 MG CAP PEG SCH (09:00)
[2020-12-09] MEDS: TIOTROPIUM BROMIDE 4 GM IH SCH (09:00)
[2020-12-09] MEDS: RILUZOLE 50 MG PO SCH (09:00)
[2020-12-09] MEDS: RISPERIDONE 1 MG TABLET PO SCH ×2 (09:00→19:47)
[2020-12-09] MEDS ORDERED: ACETAMINOPHEN 650 MG/20.3 ML UDCUP ONE (10:05)
[2020-12-09] MEDS: PREDNISOLONE 15 MG/5 ML SOLN PO SCH (10:10)
[2020-12-09] MEDS: LANSOPRAZOLE 15 MG SOLU TAB PEG SCH (10:10)
[2020-12-09] MEDS: ENOXAPARIN SODIUM 40 MG/0.4 ML SYRINGE SQ SCH (10:11)
[2020-12-09] MEDS ORDERED: PHARMACY COMMUNICATION MISC SCH (10:30)
[2020-12-09 10:44] LABS: ABG HCO3 28.8 mmol/L (21.0-28.0); ABG OXYGEN SATURATION 96.8 % (95.0-99.0); ABG PCO2 40 mmHg (35-48)
[2020-12-09] MEDS ORDERED: VALPROIC ACID IV SCH (11:00)
[2020-12-09] MEDS ORDERED: [UNRECOGNIZED DRUG - OTHER] IV SCH (11:00)
[2020-12-09] MEDS: DEXMEDETOMIDINE 400MCG/NS100ML IV SCH (11:06)
[2020-12-09] MEDS: NOREPINEPHRINE 4MG/NS 250ML 250 ML IV SCH ×2 (14:32→19:51)
[2020-12-09] MEDS: VALPROATE SOD 250 MG/5 ML (PO) PO SCH ×2 (19:43→21:00)
[2020-12-09] MEDS: ATORVASTATIN 20 MG TABLET PEG SCH (19:43)
[2020-12-10] VITALS (15 sets, daily range): BP systolic 86–141; BP diastolic 51–81
[2020-12-10 03:40] LABS: ABG BASE EXCESS 7.4 mmol/L (-2.0-3.0); ABG HCO3 31.1 mmol/L (21.0-28.0); ABG OXYGEN SATURATION 97.7 % (95.0-99.0); ABG PCO2 40 mmHg (35-48)
[2020-12-10 03:47] LABS: BASOPHILS % (AUTO) 0.2 % (0.0-5.0); HEMATOCRIT 29.9 % (42-54); LYMPHOCYTES % (AUTO) 10.5 % (21.0-51.0); MEAN CORPUSCULAR HEMOGLOBIN 29.3 pg (27.0-33.0); MEAN CORPUSCULAR HGB CONC 32.4 g/dL (32.0-36.0); MEAN CORPUSCULAR VOLUME 90.3 fL (79-99); NEUTROPHILS % (AUTO) 83.1 % (40.0-77.0); PLATELET COUNT (AUTO) 292 K/uL (130-400); RED BLOOD CELL COUNT(AUTO) 3.31 MIL/uL (4.50-6.20); RED CELL DISTRIBUTION WIDTH 14.9 % (11.0-15.5); WHITE BLOOD COUNT (AUTO) 11.8 K/uL (4.8-10.8)
[2020-12-10 04:11] LABS: ALBUMIN 1.9 g/dL (3.5-5.0); BILIRUBIN,TOTAL 0.6 mg/dL (0.2-1.0); CREATININE 0.6 mg/dL (0.5-1.5); MAGNESIUM 1.9 mg/dL (1.80-2.40); POTASSIUM 3.8 mmol/L (3.5-5.1); TOTAL PROTEIN, SERUM 5.7 g/dL (6.0-8.3)
[2020-12-10] MEDS: DEXMEDETOMIDINE 400MCG/NS100ML IV SCH (04:11)
[2020-12-10] MEDS: NOREPINEPHRINE 4MG/NS 250ML 250 ML IV SCH (04:12)
[2020-12-10] MEDS: LEVETIRACETAM 500 MG in 0.9%NACL 100ML 100 ML IV SCH (05:08)
[2020-12-10] MEDS: POTASSIUM CHLORIDE 10% ELIXIR 20 MEQ/15 ML UDCUP PO PRN (05:18)
[2020-12-10] MEDS: ZOSYN 3.375GM +NS 50ML IV SCH (06:02)
[2020-12-10] MEDS: 0.9%NACL 50ML IV SCH (06:02)
[2020-12-10] MEDS: DEXTROSE 5%-WATER 1,000 ML IV SCH (08:25)
[2020-12-10] MEDS: TIOTROPIUM BROMIDE 4 GM IH SCH (09:00)
[2020-12-10] MEDS: VALPROATE SOD 250 MG/5 ML (PO) PO SCH (09:23)
[2020-12-10] MEDS: PREDNISOLONE 15 MG/5 ML SOLN PO SCH (09:24)
[2020-12-10] MEDS: LANSOPRAZOLE 15 MG SOLU TAB PEG SCH (09:24)
[2020-12-10] MEDS: FLUOXETINE HCL 20 MG CAPSULE PEG SCH (09:24)
[2020-12-10] MEDS: RISPERIDONE 1 MG TABLET PO SCH (09:24)
[2020-12-10] MEDS: DULOXETINE HCL 30 MG CAP PEG SCH (09:24)
[2020-12-10] MEDS: ENOXAPARIN SODIUM 40 MG/0.4 ML SYRINGE SQ SCH (09:25)
[2020-12-10] MEDS ORDERED: NOREPINEPHRINE 8MG/NS 250 ML 250 ML IV ONE (11:07)
[2020-12-10] MEDS ORDERED: ACETAMINOPHEN 325 MG TAB PO PRN (15:00)
[2020-12-10] MEDS ORDERED: SCOPOLAMINE HYDROBROMIDE 1 EACH ADH..PATCH TD SCH (15:00)
[2020-12-10] MEDS ORDERED: ACETAMINOPHEN 650 MG SUPPOSITORY RC PRN (15:00)
[2020-12-10] MEDS ORDERED: ONDANSETRON 4MG INJ IVP PRN (15:00)
[2020-12-10] MEDS ORDERED: HALOPERIDOL INJ 5 MG/ML VIAL IV PRN (15:00)
[2020-12-10] MEDS ORDERED: LORAZEPAM 2 MG/ML 1 ML VIAL IVP PRN (15:00)
[2020-12-10] MEDS ORDERED: HYDROMORPHONE 1 MG INJ IVP PRN (15:00)
[2020-12-10] MEDS ORDERED: ARTIFICAL TEARS SOL 15 ML OU PRN (15:00)
[2020-12-10] MEDS ORDERED: ATROPINE SULFATE 5 ML DROPS PO PRN (15:00)
== END 2020-12-10 17:11 | DRG 208 ==
LOC: EDH 07:47 → EDHIP 14:13 → 4CH 12-02 21:40 → 3DH 12-05 17:51 → 3CH 12-05 18:31 → 3BH 12-06 06:06 → 2DH 12-07 16:47
PROVIDERS: ADMIT Internal Medicine; ATTEND Internal Medicine
PROC: 5A09357 Assistance with Respiratory Ventilation, Less than 24 Consecutive Hours, Continuous Positive Airway Pressure (ICD-10-PCS; 2020-12-01)
PROC: 5A09357 Assistance with Respiratory Ventilation, Less than 24 Consecutive Hours, Continuous Positive Airway Pressure (ICD-10-PCS; 2020-12-02)
PROC: 5A09357 Assistance with Respiratory Ventilation, Less than 24 Consecutive Hours, Continuous Positive Airway Pressure (ICD-10-PCS; 2020-12-03)
PROC: 5A09357 Assistance with Respiratory Ventilation, Less than 24 Consecutive Hours, Continuous Positive Airway Pressure (ICD-10-PCS; 2020-12-05)
PROC: 5A12012 Performance of Cardiac Output, Single, Manual (ICD-10-PCS; principal; 2020-12-07)
PROC: 0BH18EZ Insertion of Endotracheal Airway into Trachea, Via Natural or Artificial Opening Endoscopic (ICD-10-PCS; 2020-12-07)
PROC: 5A1945Z Respiratory Ventilation, 24-96 Consecutive Hours (ICD-10-PCS; 2020-12-07)
DX: J96.21 Acute and chronic respiratory failure with hypoxia (principal); J69.0 Pneumonitis due to inhalation of food and vomit; E43 Unspecified severe protein-calorie malnutrition; G92.8 Other toxic encephalopathy; G12.21 Amyotrophic lateral sclerosis; E87.0 Hyperosmolality and hypernatremia; J44.0 Chronic obstructive pulmonary disease with (acute) lower respiratory infection; I47.2 Ventricular tachycardia; J98.11 Atelectasis; Z68.1 Body mass index [BMI] 19.9 or less, adult; J96.22 Acute and chronic respiratory failure with hypercapnia; I46.9 Cardiac arrest, cause unspecified; E11.9 Type 2 diabetes mellitus without complications; E78.5 Hyperlipidemia, unspecified; F32.9 Major depressive disorder, single episode, unspecified; F41.9 Anxiety disorder, unspecified; G70.9 Myoneural disorder, unspecified; I25.10 Atherosclerotic heart disease of native coronary artery without angina pectoris; R62.7 Adult failure to thrive; R13.12 Dysphagia, oropharyngeal phase; R56.9 Unspecified convulsions; K21.9 Gastro-esophageal reflux disease without esophagitis; M54.50 Low back pain, unspecified; G72.41 Inclusion body myositis [IBM]; I10 Essential (primary) hypertension; Z93.1 Gastrostomy status; Z87.891 Personal history of nicotine dependence; Z86.73 Personal history of transient ischemic attack (TIA), and cerebral infarction without residual deficits; Z20.822 Contact with and (suspected) exposure to COVID-19
CPT/HCPCS: 31500; 36415; 36600; 70450; 71045; 71275; 72100; 73502; 80048; 80053; 81001; 82140; 82435; 82550; 82803; 82947; 82948; 83605; 83735; 83874; 83880; 84100; 84132; 84145; 84295; 84443; 84484; 85018; 85025; 87040; 87088; 87635; 87804; 92950; 93005; 93306; 94002; 94003; 94010; 94150; 94640; 94660; 94664; 97039; C9113; C9803; G0378; J0171; J0282; J0360; J0461; J1120; J1170; J1650; J1953; J2060; J2543; J2920; J3010; J3475; J3480; J3490; J7030; J7042; J7060; J7070; J7120; Q9967